=== PATIENT | female | born 1960 | race Caucasian/White ===

== ENCOUNTER → 2023-06-04 08:59 | Outpatient (BNVA) | payer BC, SELFPAY | PROVIDERS: Visit Provider Nurse Practitioner Family | DX: H66.91 Otitis media, unspecified, right ear (principal); E66.9 Obesity, unspecified; Z68.36 Body mass index [BMI] 36.0-36.9, adult; K21.00 Gastro-esophageal reflux disease with esophagitis, without bleeding; B35.1 Tinea unguium | CPT/HCPCS: 80053; 80061 ==